=== PATIENT | female | born 1995 | race Asian ===

== ENCOUNTER 2024-04-10 12:22 | Emergency (ER) | payer OTHER ==
[~2024-04-10] VITALS: Ht 149.9 cm; Wt 80.0 kg
[2024-04-10 14:36] LABS: BASO % 0.4 % (0.0-1.0); EOS # 0.2 10^3/uL (0.0-0.5); EOS % 3.4 % (0.0-3.0); HEMATOCRIT 41.5 % (36.0-47.0); HEMOGLOBIN 13.8 g/dl (12.0-15.5); LYMPH # 2.3 10^3/uL (1.5-5.0); LYMPH % 31.8 % (24.0-44.0); MEAN CORPUSCULAR HEMOGLOBIN 26.3 pg (27.0-33.0); MEAN CORPUSCULAR HGB CONC 33.3 g/dl (32.0-36.5); MONO # 0.3 10^3/uL (0.0-0.8); MONO % 4.5 % (2.0-8.0); NEUTROPHILS # 4.2 10^3/uL (1.5-8.5); NEUTROPHILS % 59.5 % (36.0-66.0); PLATELET COUNT, AUTOMATED 261 10^3/uL (150-450); RED BLOOD COUNT 5.25 10^6/uL (4.00-5.40); WHITE BLOOD COUNT 7.1 10^3/uL (4.0-10.0)
[2024-04-10 14:55] LABS: LIPASE 33 U/L (12-53)
[2024-04-10 14:57] LABS: ALBUMIN 3.5 G/DL (3.2-5.2); ALKALINE PHOSPHATASE 99 U/L (35-104); ALT/SGPT 56 U/L (7.0-40); AST/SGOT 35 U/L (<34); BILIRUBIN,DIRECT 0.2 MG/DL (<0.4); BLOOD UREA NITROGEN 17 MG/DL (9-23); CALCIUM LEVEL 9.4 MG/DL (8.5-10.1); CARBON DIOXIDE LEVEL 26 MMOL/L (20-31); CHLORIDE LEVEL 108 MMOL/L (98-107); CREATININE FOR GFR 0.52 MG/DL (0.55-1.30); GLOMERULAR FILTRATION RATE > 60.0 (>60); GLUCOSE, FASTING 84 MG/DL (60-100); POTASSIUM SERUM 4.1 MMOL/L (3.5-5.1); SODIUM LEVEL 142 MMOL/L (136-145); TOTAL PROTEIN 6.7 G/DL (5.7-8.2)
[2024-04-10 16:06] LABS: HCG, SERUM QUALITATIVE NEGATIVE (NEGATIVE)
[2024-04-10] MEDS: FAMOTIDINE 20MG/2ML VIAL IVP ONE (16:36)
[2024-04-10] MEDS: ONDANSETRON 4MG 2ML VIAL IV ONE (16:36)
[2024-04-10 17:13] LABS: CK-MB VALUE MASS < 1.0 NG/ML (<3.6)
[2024-04-10 17:15] LABS: CPK CREATINE PHOSPHOKINASE 70 U/L (34-145); MB/CK RELATIVE INDEX 1.42 (< OR =4)
[2024-04-10 17:31] VITALS: BP 144/94; TEMP 97.4; O2SAT 96
== END 2024-04-10 17:32 | disposition left against medical advice (07) ==
LOC: M ED 12:22
DX: K80.20 Calculus of gallbladder without cholecystitis without obstruction (principal); Z53.20 Procedure and treatment not carried out because of patient's decision for unspecified reasons; Z11.52 Encounter for screening for COVID-19
CPT/HCPCS: 76705; 80048; 80076; 81001; 82550; 82553; 83690; 84484; 84703; 85025; 87486; 87581; 87633; 87798; 93005; 96374; 96375; 99284; J2405; S0028